=== PATIENT | female | born 1990 | race Asian ===

== ENCOUNTER 2018-09-06 15:21 | Outpatient (CLI) | payer OTHER ==
[2018-09-06] MEDS: LACTATED RINGER'S 1,000 ML IV (18:52)
[2018-09-06 18:56] LABS: ADD MAN DIFF? NO
[2018-09-06 19:01] LABS: ADD UMIC NO; UR ASCORBIC ACID NEGATIVE (NEGATIVE); UR BILIRUBIN (Dip) NEGATIVE (NEGATIVE); UR BLOOD (Dip) NEGATIVE (NEGATIVE); UR CLARITY CLEAR (CLEAR); UR COLOR COLORLESS (YELLOW); UR GLUCOSE (Dip) NEGATIVE (NEGATIVE); UR KETONES (Dip) NEGATIVE (NEGATIVE); UR LEUKOCYTE ESTERASE (Dip) NEGATIVE Leu/ul (NEGATIVE); UR NITRITE (Dip) NEGATIVE (NEGATIVE); UR SPECIFIC GRAVITY (Dip) 1.001 (1.003-1.030); UR TOTAL PROTEIN (Dip) NEGATIVE (NEGATIVE); UR UROBILINOGEN (Dip) NEGATIVE (NEGATIVE)
[2018-09-06 19:29] LABS: BASOPHIL # 0.1 10^3/ul (0.0-0.1); BASOPHILS % 0.5 % (0.0-2.0); EOSINOPHILS # 0.1 10^3/ul (0.0-0.5); EOSINOPHILS % 1.1 % (0.0-7.0); HEMATOCRIT 30.6 % (37.0-47.0); HEMOGLOBIN 10.2 g/dl (12.0-16.0); LYMPHOCYTES % 18.5 % (15.0-51.0); MEAN CORPUSCULAR HEMOGLOBIN 27.4 pg (29.0-33.0); MEAN CORPUSCULAR HGB CONC 33.3 g/dl (32.0-37.0); MEAN CORPUSCULAR VOLUME 82.3 fl (82.0-101.0); MEAN PLATELET VOLUME 9.3 fl (7.4-10.4); MONOCYTE # 0.9 10^3/ul (0.3-0.9); MONOCYTES % 8.2 % (0.0-11.0); NEUTROPHIL # 7.5 10^3/ul (1.6-7.5); NEUTROPHILS % 69.8 % (39.0-77.0); PLATELET COUNT 245 10^3/UL (140-415); RED BLOOD COUNT 3.72 10^6/ul (4.20-5.40); RED CELL DISTRIBUTION WIDTH 12.9 % (11.5-14.5)
[2018-09-06 19:29] LABS: WHITE BLOOD COUNT 10.8 10^3/ul (4.8-10.8)
[2018-09-06] MEDS: BETAMET NA PHOS/AC(6 MG/ML) 2 ML INJ SYG IM (21:01)
== END 2018-09-06 21:45 | disposition home or self-care (01) ==
LOC: OBT 15:21 → L-D 15:22 → OBT 21:45
DX: O26.893 Other specified pregnancy related conditions, third trimester (principal); Z3A.30 30 weeks gestation of pregnancy; R10.2 Pelvic and perineal pain
CPT/HCPCS: 36415; 76815; 76817; 76818; 81003; 85025; 87086; 96360; 96361

== ENCOUNTER 2018-09-07 20:57 | Outpatient (CLI) | payer OTHER ==
[2018-09-07] MEDS: BETAMET NA PHOS/AC(6 MG/ML) 2 ML INJ SYG IM (22:33)
== END 2018-09-07 23:37 | disposition home or self-care (01) ==
LOC: OBT 20:57 → L-D 20:58 → OBT 23:37
DX: O26.893 Other specified pregnancy related conditions, third trimester (principal); R10.2 Pelvic and perineal pain; O30.003 Twin pregnancy, unspecified number of placenta and unspecified number of amniotic sacs, third trimester; Z3A.31 31 weeks gestation of pregnancy
CPT/HCPCS: 82731; 96372

== ENCOUNTER 2018-10-04 14:30 | Inpatient (IN) | payer OTHER ==
[2018-10-04 16:49] LABS: ADD UMIC NO; UR ASCORBIC ACID NEGATIVE (NEGATIVE); UR BACTERIA FEW /HPF (NONE SEEN); UR BILIRUBIN (Dip) NEGATIVE (NEGATIVE); UR BLOOD (Dip) NEGATIVE (NEGATIVE); UR CLARITY SLIGHTLY CLOUDY (CLEAR); UR COLOR YELLOW (YELLOW); UR GLUCOSE (Dip) NEGATIVE (NEGATIVE); UR KETONES (Dip) 1+ mg/dL (NEGATIVE); UR LEUKOCYTE ESTERASE (Dip) NEGATIVE Leu/ul (NEGATIVE); UR MUCUS FEW /HPF (NONE SEEN); UR NITRITE (Dip) NEGATIVE (NEGATIVE); UR RBC 4 /HPF (0-5); UR SQUAMOUS EPITHELIAL CELL MODERATE /HPF (FEW); UR TOTAL PROTEIN (Dip) NEGATIVE (NEGATIVE); UR UROBILINOGEN (Dip) 1+ mg/dL (NEGATIVE); UR WBC 2 /HPF (0-5)
[2018-10-04] MEDS ORDERED: TERBUTALINE 1 MG/ML INJ SC (17:00)
[2018-10-04] MEDS: LACTATED RINGER'S 1,000 ML IV* (17:34)
[2018-10-04 17:39] LABS: ADD MAN DIFF? NO
[2018-10-04 17:43] LABS: BASOPHILS % 0.4 % (0.0-2.0); EOSINOPHILS # 0.1 10^3/ul (0.0-0.5); EOSINOPHILS % 0.8 % (0.0-7.0); HEMATOCRIT 31.4 % (37.0-47.0); HEMOGLOBIN 10.1 g/dl (12.0-16.0); LYMPHOCYTES % 20.5 % (15.0-51.0); MEAN CORPUSCULAR HEMOGLOBIN 26.2 pg (29.0-33.0); MEAN CORPUSCULAR HGB CONC 32.2 g/dl (32.0-37.0); MEAN CORPUSCULAR VOLUME 81.3 fl (82.0-101.0); MEAN PLATELET VOLUME 9.2 fl (7.4-10.4); MONOCYTE # 0.8 10^3/ul (0.3-0.9); MONOCYTES % 8.7 % (0.0-11.0); NEUTROPHIL # 6.6 10^3/ul (1.6-7.5); NEUTROPHILS % 67.8 % (39.0-77.0); PLATELET COUNT 226 10^3/UL (140-415); RED BLOOD COUNT 3.86 10^6/ul (4.20-5.40); RED CELL DISTRIBUTION WIDTH 15.3 % (11.5-14.5)
[2018-10-04 17:43] LABS: WHITE BLOOD COUNT 9.7 10^3/ul (4.8-10.8)
[2018-10-04] MEDS ORDERED: ACETAMINOPHEN 325 MG TAB PO (21:00)
[2018-10-04 21:04] LABS: INR 0.92; PROTIME 12.5 Sec (11.9-14.9)
[2018-10-04 21:05] LABS: PARTIAL THROMBOPLASTIN TIME 26.2 Sec (23.0-35.0)
[2018-10-04 21:43] LABS: HEPATITIS B SURFACE ANTIGEN NEGATIVE (NEGATIVE)
[2018-10-04] MEDS: LACTATED RINGER'S 1,000 ML IV (21:45)
[2018-10-04] MEDS: NIFEdipine 10 MG CAP PO (23:22)
[2018-10-05] MEDS: NIFEdipine 10 MG CAP PO ×2 (05:45→12:03)
[2018-10-05] MEDS: LACTATED RINGER'S 1,000 ML IV ×3 (06:06→22:04)
[2018-10-05 15:24] LABS: RAPID PLASMA REAGIN NONREACTIVE (NR)
[2018-10-05] MEDS ORDERED: CA GLUCONATE (GM) 10% 10ML INJ IV (17:00)
[2018-10-05] MEDS: MAGNESIUM SULFATE 4 GM/100 ML 100 ML IV (17:04)
[2018-10-05] MEDS: MAGNESIUM SULFATE 20 GM/500 ML 500 ML IV (17:44)
[2018-10-05] MEDS: DEXAMETHASONE 4 MG/ML 5 ML INJ IM (18:34)
[2018-10-06 00:41] LABS: MAGNESIUM 4.3 mg/dl (1.7-2.5)
[2018-10-06] MEDS: MAGNESIUM SULFATE 20 GM/500 ML 500 ML IV ×2 (04:39→09:58)
[2018-10-06] MEDS: LACTATED RINGER'S 1,000 ML IV ×4 (06:09→19:31)
[2018-10-06 06:50] LABS: MAGNESIUM 4.6 mg/dl (1.7-2.5)
[2018-10-06] MEDS: DEXAMETHASONE 4 MG/ML 5 ML INJ IM ×2 (08:46→20:29)
[2018-10-06] MEDS ORDERED: NIFEdipine 10 MG CAP (11:34)
[2018-10-06] MEDS: NIFEdipine 10 MG CAP PO ×2 (11:54→18:05)
[2018-10-07] MEDS: NIFEdipine 10 MG CAP PO ×2 (00:07→06:30)
[2018-10-07] MEDS: AL HYDROX/MG HYDROX/SIMETH 30 ML CUP PO (03:01)
[2018-10-07] MEDS ORDERED: AMPICILLIN 2 GM/NS (PMX) 100 ML IVPB (07:30)
[2018-10-07] MEDS ORDERED: METHYLERGONOVINE 0.2 MG INJ IM ×2 (08:00→09:00)
[2018-10-07] MEDS ORDERED: CARBOPROST 250 MCG INJ IM ×2 (08:00→09:00)
[2018-10-07] MEDS ORDERED: MISOPROSTOL 200 MCG TAB PR ×2 (08:00→09:00)
[2018-10-07] MEDS ORDERED: OXYTOCIN 30 UNITS/LR 500 ML IV ×4 (08:00→10:38)
[2018-10-07] MEDS: CLINDAMYCIN 900 MG/D5W (PMX) 50 ML IVPB (08:11)
[2018-10-07 08:47] LABS: ADD MAN DIFF? NO
[2018-10-07 08:56] LABS: BASOPHILS % 0.3 % (0.0-2.0); EOSINOPHILS % 0.1 % (0.0-7.0); HEMATOCRIT 31.1 % (37.0-47.0); HEMOGLOBIN 9.8 g/dl (12.0-16.0); LYMPHOCYTES # 2.6 10^3/ul (0.8-2.9); LYMPHOCYTES % 22.2 % (15.0-51.0); MEAN CORPUSCULAR HEMOGLOBIN 26.1 pg (29.0-33.0); MEAN CORPUSCULAR HGB CONC 31.5 g/dl (32.0-37.0); MEAN CORPUSCULAR VOLUME 82.7 fl (82.0-101.0); MONOCYTE # 1.1 10^3/ul (0.3-0.9); MONOCYTES % 9.3 % (0.0-11.0); NEUTROPHIL # 7.8 10^3/ul (1.6-7.5); NEUTROPHILS % 65.6 % (39.0-77.0); PLATELET COUNT 224 10^3/UL (140-415); RED BLOOD COUNT 3.76 10^6/ul (4.20-5.40)
[2018-10-07 08:56] LABS: WHITE BLOOD COUNT 11.8 10^3/ul (4.8-10.8)
[2018-10-07] MEDS ORDERED: NA PHOSPHATE/BIPHOS 133 ML ENEMA PR (09:00)
[2018-10-07] MEDS ORDERED: METHYLERGONOVINE 0.2 MG TAB PO (09:00)
[2018-10-07] MEDS ORDERED: LANOLIN HPA 1 PKT TOP (09:00)
[2018-10-07] MEDS ORDERED: AMPICILLIN 1 GM/NS (PMX) 50 ML IVPB (09:00)
[2018-10-07 09:17] LABS: INR 0.89; PARTIAL THROMBOPLASTIN TIME 24.6 Sec (23.0-35.0); PROTIME 12.2 Sec (11.9-14.9)
[2018-10-07] MEDS ORDERED: ONDANSETRON 4 MG INJ (09:23)
[2018-10-07] MEDS ORDERED: morphine SULFATE/PF (10 MG/10 ML) INJ (09:23)
[2018-10-07] MEDS ORDERED: KETOROLAC 30 MG INJ (09:23)
[2018-10-07] MEDS ORDERED: METOCLOPRAMIDE 10 MG INJ (09:23)
[2018-10-07] MEDS ORDERED: PHENYLephrine (100 MCG/ML) 10ML SYG (09:35)
[2018-10-07] MEDS: DEXAMETHASONE 4 MG/ML 5 ML INJ IM (13:00)
[2018-10-07] MEDS: SENNA/DOCUSATE NA (8.6MG/50MG) TAB PO ×2 (13:00→21:00)
[2018-10-07] MEDS: CLINDAMYCIN 600 MG/D5W (PMX) 50 ML IVPB ×3 (14:16→21:48)
[2018-10-07] MEDS ORDERED: DIPHENHYDRAMINE 50 MG INJ IV ×2 (15:30)
[2018-10-07] MEDS ORDERED: NALOXONE (0.4 MG/ML) INJ IV (15:30)
[2018-10-07] MEDS ORDERED: ONDANSETRON 4 MG INJ IV ×2 (15:30)
[2018-10-07] MEDS ORDERED: morphine (1 MG/ML) 10ML SYRINGE IV ×3 (15:30)
[2018-10-07] MEDS ORDERED: morphine 2 MG INJ IV ×2 (15:30)
[2018-10-07 16:53] LABS: RAPID PLASMA REAGIN NONREACTIVE (NR)
[2018-10-07] MEDS: OXYTOCIN 30 UNITS/LR 500 ML IV (17:17)
[2018-10-08] MEDS: morphine 2 MG INJ IV ×2 (00:39→08:03)
[2018-10-08] MEDS: LACTATED RINGER'S 1,000 ML IV (03:58)
[2018-10-08] MEDS: CLINDAMYCIN 600 MG/D5W (PMX) 50 ML IVPB ×4 (05:17→23:55)
[2018-10-08 06:42] LABS: ADD MAN DIFF? NO
[2018-10-08 06:49] LABS: WHITE BLOOD COUNT 13.9 10^3/ul (4.8-10.8)
[2018-10-08 06:49] LABS: ABNORMAL IP MESSAGE 1; BASOPHIL # 0.1 10^3/ul (0.0-0.1); BASOPHILS % 0.4 % (0.0-2.0); EOSINOPHILS # 0.1 10^3/ul (0.0-0.5); EOSINOPHILS % 0.4 % (0.0-7.0); HEMATOCRIT 27.6 % (37.0-47.0); LYMPHOCYTES # 2.6 10^3/ul (0.8-2.9); LYMPHOCYTES % 18.6 % (15.0-51.0); MEAN CORPUSCULAR HEMOGLOBIN 26.4 pg (29.0-33.0); MEAN CORPUSCULAR HGB CONC 32.6 g/dl (32.0-37.0); MEAN CORPUSCULAR VOLUME 80.9 fl (82.0-101.0); MEAN PLATELET VOLUME 9.1 fl (7.4-10.4); MONOCYTE # 1.8 10^3/ul (0.3-0.9); MONOCYTES % 12.8 % (0.0-11.0); NEUTROPHIL # 9.3 10^3/ul (1.6-7.5); NEUTROPHILS % 66.9 % (39.0-77.0); PLATELET COUNT 166 10^3/UL (140-415); RED BLOOD COUNT 3.41 10^6/ul (4.20-5.40); RED CELL DISTRIBUTION WIDTH 14.5 % (11.5-14.5)
[2018-10-08 07:06] LABS: POSITIVE DIFF @See below
[2018-10-08] MEDS: SENNA/DOCUSATE NA (8.6MG/50MG) TAB PO ×2 (08:03→21:30)
[2018-10-08] MEDS: BISACODYL (EC) 5 MG TAB PO ×2 (10:30→18:50)
[2018-10-08] MEDS: HYDROCODONE/APAP (5/325) TAB PO ×2 (11:52→17:55)
[2018-10-08] MEDS: SOD FERRIC GLUC COMPLX 125 MG in SOD CHLORIDE 0.9% 100 ML IVPB (13:12)
[2018-10-09] MEDS: HYDROCODONE/APAP (5/325) TAB PO ×3 (00:54→22:52)
[2018-10-09] MEDS: CLINDAMYCIN 600 MG/D5W (PMX) 50 ML IVPB ×2 (05:17→11:47)
[2018-10-09] MEDS: HYDROmorphONE 0.5 MG/0.5 ML SYG IV (05:34)
[2018-10-09 06:38] LABS: ADD MAN DIFF? NO
[2018-10-09 06:43] LABS: WHITE BLOOD COUNT 15.5 10^3/ul (4.8-10.8)
[2018-10-09 06:43] LABS: BASOPHIL # 0.1 10^3/ul (0.0-0.1); BASOPHILS % 0.3 % (0.0-2.0); EOSINOPHILS # 0.2 10^3/ul (0.0-0.5); EOSINOPHILS % 1.2 % (0.0-7.0); HEMOGLOBIN 9.1 g/dl (12.0-16.0); LYMPHOCYTES # 3.3 10^3/ul (0.8-2.9); LYMPHOCYTES % 21.2 % (15.0-51.0); MEAN CORPUSCULAR HGB CONC 32.5 g/dl (32.0-37.0); MEAN PLATELET VOLUME 9.1 fl (7.4-10.4); MONOCYTE # 1.4 10^3/ul (0.3-0.9); MONOCYTES % 9.1 % (0.0-11.0); NEUTROPHIL # 10.4 10^3/ul (1.6-7.5); NEUTROPHILS % 67.2 % (39.0-77.0); PLATELET COUNT 219 10^3/UL (140-415); RED CELL DISTRIBUTION WIDTH 14.9 % (11.5-14.5)
[2018-10-09] MEDS: SENNA/DOCUSATE NA (8.6MG/50MG) TAB PO ×2 (09:35→22:51)
[2018-10-09] MEDS: SOD FERRIC GLUC COMPLX 125 MG in SOD CHLORIDE 0.9% 100 ML IVPB (13:26)
[2018-10-09] MEDS: BISACODYL (EC) 5 MG TAB PO (17:15)
[2018-10-09] MEDS: CEPHALEXIN 500 MG CAP PO (18:40)
[2018-10-10] MEDS: CEPHALEXIN 500 MG CAP PO ×3 (00:05→12:23)
[2018-10-10] MEDS: HYDROCODONE/APAP (5/325) TAB PO ×2 (05:39→13:17)
[2018-10-10 06:48] LABS: ADD MAN DIFF? NO
[2018-10-10 06:58] LABS: WHITE BLOOD COUNT 12.8 10^3/ul (4.8-10.8)
[2018-10-10 06:58] LABS: BASOPHILS % 0.3 % (0.0-2.0); EOSINOPHILS # 0.3 10^3/ul (0.0-0.5); EOSINOPHILS % 2.6 % (0.0-7.0); HEMATOCRIT 27.1 % (37.0-47.0); HEMOGLOBIN 8.8 g/dl (12.0-16.0); LYMPHOCYTES # 3.3 10^3/ul (0.8-2.9); MEAN CORPUSCULAR HEMOGLOBIN 26.2 pg (29.0-33.0); MEAN CORPUSCULAR HGB CONC 32.5 g/dl (32.0-37.0); MEAN CORPUSCULAR VOLUME 80.7 fl (82.0-101.0); MEAN PLATELET VOLUME 8.9 fl (7.4-10.4); MONOCYTE # 0.9 10^3/ul (0.3-0.9); MONOCYTES % 6.8 % (0.0-11.0); NEUTROPHILS % 62.7 % (39.0-77.0); PLATELET COUNT 255 10^3/UL (140-415); RED BLOOD COUNT 3.36 10^6/ul (4.20-5.40); RED CELL DISTRIBUTION WIDTH 15.2 % (11.5-14.5)
[2018-10-10] MEDS: MEASLES,MUMPS,RUBELLA VACCINE INJ SC* (09:00)
[2018-10-10] MEDS: DIPHTH/TET/ACEL PERTUSS (ADULT) 0.5 ML VIAL IM* (09:00)
[2018-10-10] MEDS: SENNA/DOCUSATE NA (8.6MG/50MG) TAB PO (09:32)
== END 2018-10-10 15:05 | disposition home or self-care (01) | DRG 788 ==
LOC: OBT 14:30 → L-D 14:30 → OBT 20:41 → PP1 10-07 14:46 → L-D 20:41
PROC: 10D00Z1 Extraction of Products of Conception, Low, Open Approach (ICD-10-PCS; principal; 2018-10-07)
DX: O60.14X2 Preterm labor third trimester with preterm delivery third trimester, fetus 2 (principal); O30.043 Twin pregnancy, dichorionic/diamniotic, third trimester; Z3A.35 35 weeks gestation of pregnancy; Z37.2 Twins, both liveborn
CPT/HCPCS: 36415; 76815; 76818; 81001; 81003; 82731; 83735; 85025; 85610; 85730; 86592; 86850; 86900; 86901; 87340; 88307; 99464